=== PATIENT | male | born 1975 | race Caucasian/White ===

== ENCOUNTER 2024-03-25 09:56 | Inpatient (IN) | payer OTHER ==
[2024-03-25 10:48] VITALS: BMI 21.8
[2024-03-25] MEDS ORDERED: ACETAMINOPHEN 325 MG TABLET (FP) PO PRN (11:36)
[2024-03-25] MEDS ORDERED: guaiFENesin 600 MG TABLET.ER (FP) PO PRN (11:36)
[2024-03-25] MEDS ORDERED: ONDANSETRON *ODT* 4 MG TABLET SL PRN (11:36)
[2024-03-25] MEDS ORDERED: MAGNESIUM HYDROX 2400MG/30ML ORAL SUSPENSION 30 ML CUP PO PRN (11:36)
[2024-03-25] MEDS ORDERED: POLYETHYLENE GLYCOL (HEALTHYLAX) 3350 17 GM PACKET PO PRN (11:36)
[2024-03-25] MEDS ORDERED: DICYCLOMINE HCL 10 MG CAPSULE PO PRN (11:36)
[2024-03-25] MEDS ORDERED: METHOCARBAMOL 500 MG TABLET PO PRN (11:36)
[2024-03-25] MEDS ORDERED: hydrOXYzine PAMOATE 25 MG CAPSULE (FP) PO PRN (11:36)
[2024-03-25] MEDS ORDERED: BENZOCAINE/MENTHOL (CHLORASEPTIC ) LOZENGE MM PRN (11:36)
[2024-03-25] MEDS ORDERED: NALOXONE (NARCAN) HCL 4 MG/0.1 ML SPRAY NS PRN (11:36)
[2024-03-25] MEDS ORDERED: IBUPROFEN 400 MG TABLET (FP) PO PRN (11:36)
[2024-03-25] MEDS ORDERED: MAG HYDROX/AL HYDROX/SIMETH 30 ML UNIT-DOSE CUP PO PRN (11:36)
[2024-03-25] MEDS ORDERED: IBUPROFEN 600 MG TABLET (FP) PO PRN (11:36)
[2024-03-25] MEDS ORDERED: chlordiazePOXIDE HCL 25 MG CAPSULE PO PRN (11:36)
[2024-03-25] MEDS ORDERED: LOPERAMIDE HCL 2 MG CAPSULE PO PRN (11:36)
[2024-03-25] MEDS ORDERED: BENZONATATE 200 MG CAPSULE PO PRN (11:36)
[2024-03-25] MEDS ORDERED: BISMUTH SUBSALICYLATE 262 MG/15 ML BTL PO PRN (11:36)
[2024-03-25] MEDS ORDERED: BISACODYL 5 MG TABLET.DR (FP) PO PRN (11:45)
[2024-03-25] MEDS: PRENATAL VITAMINS W/ FOLIC ACID TABLET (FP) PO SCH (12:06)
[2024-03-25] MEDS: ACAMPROSATE CALCIUM 333 MG TABLET.DR PO SCH (14:35)
[2024-03-25] MEDS: chlordiazePOXIDE HCL 25 MG CAPSULE PO SCH (17:42)
[2024-03-25] MEDS: THIAMINE 100 MG TABLET PO SCH (22:57)
[2024-03-25] MEDS: MELATONIN 5 MG TABLETS PO SCH (23:01)
[2024-03-26] MEDS ORDERED: LACTULOSE 20 GM/30 ML UDC (FOR ORAL USE ONLY) PO SCH (10:00)
[2024-03-26] MEDS: BISACODYL 5 MG TABLET.DR (FP) PO SCH (10:34)
[2024-03-26] MEDS: LACTULOSE 20 GM/30 ML UDC (FOR ORAL USE ONLY) PO SCH (10:35)
[2024-03-26] MEDS: PNEUMOC 20-VAL CONJ-DIP CRM/PF 0.5 ML SYRINGE IM ONE (11:29)
[2024-03-26 12:29] LABS: HEMATOCRIT 46.3 % (35.4-49); HEMOGLOBIN 15.3 GM/dL (11.7-16.9); MCH 29.5 pg (25.7-33.7); MEAN CELL VOLUME 89.6 fl (80-96); MEAN PLT VOLUME 11.6 fl (7.5-11.1); PLATELET COUNT 153 10^3/uL (134-434); RBC 5.17 M/mm3 (4.00-5.60); WHITE BLOOD COUNT 7.1 K/mm3 (4.0-10.0)
[2024-03-26 12:31] LABS: ALBUMIN 3.4 g/dl (3.4-5.0); CALCIUM 9.3 mg/dL (8.5-10.1)
[2024-03-26 12:32] LABS: BLOOD UREA NITROGEN 18.8 mg/dL (7-18)
[2024-03-26 12:34] LABS: CREATININE 0.9 mg/dL (0.55-1.3)
[2024-03-26 12:37] LABS: BILIRUBIN,TOTAL 0.4 mg/dL (0.2-1); TOT PROT 6.4 g/dl (6.4-8.2)
[2024-03-26] MEDS: MELATONIN 5 MG TABLETS PO ONE (22:42)
[2024-03-27] MEDS: chlordiazePOXIDE HCL 25 MG CAPSULE PO SCH (05:48)
[2024-03-27 06:05] VITALS: RESP 16
[2024-03-27 12:59] VITALS: BP 149/83; PULSE 64; TEMP 97.7
[2024-03-27] MEDS ORDERED: NALOXONE (NYS OPIOID OVERDOSE PROGRAM) 4 MG/0.1 ML SPRAY NS SCH (13:30)
[2024-03-28] MEDS ORDERED: chlordiazePOXIDE HCL 10 MG CAPSULE PO PRN
[2024-03-28] MEDS ORDERED: chlordiazePOXIDE HCL 10 MG CAPSULE PO SCH (05:00)
[2024-03-29] MEDS ORDERED: chlordiazePOXIDE HCL 10 MG CAPSULE PO SCH (05:00)
[2024-03-30] MEDS ORDERED: chlordiazePOXIDE HCL 10 MG CAPSULE PO ONE (05:00)
== END 2024-03-27 13:45 | disposition left against medical advice (07) | DRG 770 ==
LOC: YASAS 09:56 → Y3N 11:51
PROVIDERS: ADMIT Allergy & Immunology; ATTEND Surgery
PROC: HZ2ZZZZ Detoxification Services for Substance Abuse Treatment (ICD-10-PCS; principal; 2024-03-25)
DX: F10.230 Alcohol dependence with withdrawal, uncomplicated (principal); F14.10 Cocaine abuse, uncomplicated; F12.10 Cannabis abuse, uncomplicated; F17.210 Nicotine dependence, cigarettes, uncomplicated; K59.09 Other constipation
CPT/HCPCS: 36415; 80053; 80305; 80307; 85027; 86780